=== PATIENT | male | born 1950 | race Caucasian/White ===

== ENCOUNTER 2020-07-24 06:05 | Day surgery (SDC) | payer BC, MEDICARE ==
[2020-07-21 13:05] LABS: Hematocrit 36.6 % (35.5-45.6); Hemoglobin 11.5 gm/dl (11.8-15.2); Mean Corpuscular HGB Conc 31 % (32-34); Mean Corpuscular Volume 65 fl (84-94); Platelet Count 254 K/mm3 (140-440); Red Blood Count 5.66 M/mm3 (3.65-5.03); Red Cell Distribution Width 16.2 % (13.2-15.2)
[2020-07-21 13:20] LABS: BUN/Creatinine Ratio 10; Blood Urea Nitrogen 9 mg/dL (9-20); Calcium 8.6 mg/dL (8.4-10.2); Hemolysis Index 0
[2020-07-24] MEDS ORDERED: ceFAZolin/STERILE WATER 2 GM/20 ML SYRINGE IV NR (07:00)
[2020-07-24] MEDS ORDERED: fentaNYL 100 MCG/2 ML INJ ONE (07:00)
[2020-07-24] MEDS ORDERED: propofoL 200 MG/20 ML VIAL IV ONE (07:01)
[2020-07-24] MEDS ORDERED: LACTATED RINGERS 1,000 ML ONE (07:15)
[2020-07-24] MEDS ORDERED: BUPIVACAINE/PF (0.5%) 5 MG/1 ML 30 ML VIAL INFILTRATI ONE ×2 (07:19→08:30)
[2020-07-24] MEDS ORDERED: HYDROmorphone 1 MG/1 ML INJ IV PRN ×2 (07:19)
[2020-07-24] MEDS ORDERED: LIDOCAINE (1%) 10 MG/1 ML VIAL 20 ML MDV ONE (07:19)
[2020-07-24] MEDS ORDERED: ONDANSETRON 4 MG/2 ML INJ IV PRN (07:19)
--- NOTE | 2020-07-24 07:24 | Anesthesia Day of Surgery ---
Anesthesia Day of Surgery - Day of Surgery Patient Examined: Yes Patient H&P Reviewed: Yes Patient is NPO: Yes
--- NOTE | 2020-07-24 07:25 | Anesthesia Consultation ---
Anesthesia Consult and Med Hx Date of service: 07/24/20 - Airway Anesthetic Teeth Evaluation: Bridges ROM Head & Neck: Adequate Mental/Hyoid Distance: Adequate Mallampati Class: Class II Intubation Access Assessment: Good - Pre-Operative Health Status ASA Pre-Surgery Classification: ASA2 Proposed Anesthetic Plan: General - Pulmonary Hx Smoking: No Hx Asthma: No Hx Respiratory Symptoms: No (+2FS) Hx Pneumonia: No Hx Sleep Apnea: No (HIGH RISK ON PRESCREEN-SNORES) - Cardiovascular System Hx Hypertension: No Hx Heart Attack/AMI: No Hx Pacemaker: No Hx Internal Defibrillator: No Hx Heart Murmur: No - Central Nervous System Hx Seizures: No Hx Back Pain: No Hx Psychiatric Problems: No - Endocrine Hx End Stage Renal Disease: No Hx Cirrhosis: No Hx Liver Disease: No - Hematic Hx Anemia: No - Other Systems Hx Alcohol Use: No Hx Substance Use: No Hx Cancer: No
[2020-07-24] MEDS ORDERED: LACTATED RINGERS 1,000 ML IV SCH (07:30)
[2020-07-24] MEDS ORDERED: KETOROLAC 30 MG/1 ML INJ ONE (07:34)
[2020-07-24] MEDS ORDERED: KETAMINE/STERILE WATER 50 MG/ML SYRINGE ONE (07:35)
[2020-07-24] MEDS ORDERED: ePHEDrine SULFATE 50 MG/1 ML INJ ONE (07:51)
[2020-07-24] MEDS ORDERED: HYDROmorphone 1 MG/1 ML INJ ONE (08:26)
[2020-07-24] MEDS ORDERED: WATER FOR IRRIG STERILE 1,500 ML BOTTLE IR ONE (08:30)
[2020-07-24] MEDS ORDERED: LIDOCAINE (1%) 10 MG/1 ML VIAL 20 ML MDV INFILTRATI ONE (08:30)
[2020-07-24] MEDS ORDERED: ROCURONIUM 50 MG/5 ML INJ IV ONE (09:52)
[2020-07-24] MEDS ORDERED: LIDOCAINE MPF (2%) 20 MG/1 ML VIAL 5 ML ONE (09:52)
[2020-07-24] MEDS ORDERED: PHENYLEPHRINE/NS 1,000 MCG/10 ML SYRINGE (OR USE) IV ONE (09:53)
[2020-07-24] MEDS ORDERED: dexAMETHasone 20 MG/5 ML VIAL ONE (09:53)
[2020-07-24] MEDS ORDERED: NEOSTIGMINE 10MG/10 ML INJ MDV ONE (09:54)
[2020-07-24] MEDS ORDERED: GLYCOPYRROLATE 0.4 MG/2 ML INJ ONE (09:54)
--- NOTE | 2020-07-24 09:55 | Short Stay Summary ---
Short Stay Documentation Date of service: 07/24/20 - History Principal diagnosis: left, possible right inguinal hernia H&P: obtained from office - Allergies and Medications Current Medications: Allergies No Known Allergies Allergy (Verified 07/21/20 15:48) Home Medications Medication Instructions Recorded Confirmed Last Taken Type Aspirin [Adult Aspirin] 81 mg PO DAILY 07/20/20 07/24/20 07/20/20 09:00 History Iron 1 tab PO 2XW 07/20/20 07/24/20 07/23/20 09:00 History Mobic 15 mg PO Q48HR 07/20/20 07/24/20 07/20/20 09:00 History Stool Softener 1 cap PO DAILY 07/20/20 07/24/20 07/23/20 09:00 History Active Medications Cefazolin Sodium (Cefazolin/Sterile Water 2 Gm/20 Ml Syringe) 2 gm IV PREOP NR Stop: 07/24/20 23:59 Hydromorphone HCl (Hydromorphone 1 Mg/1 Ml Inj) 0.25 mg IV Q10MIN PRN PRN Reason: Pain, Moderate (4-6) Stop: 07/24/20 23:00 Hydromorphone HCl (Hydromorphone 1 Mg/1 Ml Inj) 0.5 mg IV Q10MIN PRN PRN Reason: Pain , Severe (7-10) Stop: 07/24/20 23:00 Lactated Ringer's (Lactated Ringers) 1,000 mls @ 125 mls/hr IV DIRECT IAN Last Admin: 07/24/20 07:20 Dose: 125 mls/hr Documented by: Ondansetron HCl (Ondansetron 4 Mg/2 Ml Inj) 4 mg IV ONCE PRN PRN Reason: Nausea And Vomiting - Brief post op/procedure progress note Date of procedure: 07/24/20 Pre-op diagnosis: left possible right inguinal hernia Post-op diagnosis: other (bilateral inguinal hernia) Procedure: robotic assisted bilateral inguinal hernia repair with mesh, ilioinguinal nerve block Anesthesia: GETA, local Findings: Large direct LEFT inguinal hernia and Small direct RIGHT inguinal hernia - r epaired with Bard RIGHT and LEFT 3D max medium mesh respectively. Surgeon: MARY LOU SANTORO Estimated blood loss: minimal Pathology: none Condition: stable - Hospital course Hospital course: Pt observed - Disposition Condition at discharge: Good Disposition: DC-01 TO HOME OR SELFCARE Short Stay Discharge Plan Activity: other (no heavy lifting) Diet: regular Wound: open to air, per your surgeon's advice Additional Instructions: SEE PRINTED DISCHARGE INSTRUCTIONS. NO HEAVY LIFTING. WOUND:OPEN TO AIR. FOLLOW SURGEON INSTRUCTION. CALL FOR F/U APPT. Follow up with: TARIK ATKINSON MD [Primary Care Provider] - 7 Days MARY LOU SANTORO DO [Staff Physician] - 14 Days Forms: Outpatient Surgery DC Inst. Prescriptions: Gabapentin 300 mg PO BID 3 Days #6 cap oxyCODONE /ACETAMINOPHEN [Percocet 5/325] 1 tab PO Q6H #20 tab
[2020-07-24 12:30] VITALS: BP 130/75
--- NOTE | 2020-07-24 13:03 | Post Anesthesia Evaluation ---
- Post Anesthesia Evaluation Patient Participated: Yes Airway Patent: Yes Stable Respiratory Function: Yes Nausea/Vomiting: No Temp > 96.8F: Yes Pain Manageable: Yes Adequeate Hydration: Yes Anesthesia Complications: No Block Receding Appropriately: Not Applicable Patient on Ventilator: No
--- NOTE | 2020-07-24 17:13 | Operative Report ---
Operative Report Operative Report: Date of procedure: 07/24/20 Pre-op diagnosis: left possible right inguinal hernia Post-op diagnosis: other (bilateral inguinal hernia) Procedure: Robotic assisted bilateral inguinal hernia repair with mesh, ilioinguinal nerve block Anesthesia: GETA, local Findings: Large direct LEFT inguinal hernia and Small direct RIGHT inguinal hernia - repaired with Bard RIGHT and LEFT 3D max medium mesh respectively. Surgeon: MARY LOU SANTORO Estimated blood loss: minimal Pathology: none Condition: stable Hospital course: Pt observed doing discharged to home in stable condition when criteria met HPI and indication: Patient is a 70-year-old male who was referred to the surgery clinic for a bulge in the left groin. He was found to have a left inguinal hernia on physical exam. The hernia was symptomatic and often cause pain and pressure. It was recommended that the hernia be repaired. I discussed all risk, benefits, alternatives to repair with the patient and questions were answered. I explained that if the hernia was found on the right side at the same time, this would be fixed as well. The patient was agreeable. Consent obtained for robotic assisted left inguinal hernia repair with mesh, possible right, possible open. Procedure in detail: Patient was identified in the preoperative area, take back to operating room placed on operative table in supine position. After anesthesia was induced both arms were tucked and all bony prominences padded appropriately. A Toscano catheter was sterilely placed by the circulating nurse. The abdomen and b/l groins were then prepped and draped in usual sterile fashion and a timeout performed. Local anesthetic was infiltrated to skin at the intended incision sites. A supraumbilical incision was made through which a Veress needle was inserted. Veress needle positioning was confirmed using saline drop test and the abdomen insufflated to 15 mmHg. Once the abdomen was insufflated, the Veress needle was removed and a 5 mm Optiview trocar was placed as incision. The abdomen is inspected there was no underlying injury to any of the abdominal structures. Patient was placed in Trendelenburg and the pelvis examined. There was a left inguinal hernia and a small right inguinal hernia. At this point, an 8 mm right upper quadrant and left upper quadrant robotic trocars were then placed under direct visualization. The 5 mm supraumbilical trocar was removed and replaced with a 12 mm balloon trocar under direct visualization. A Ray-Dinesh was placed into the abdomen. The robot was then docked. A fenestrated bipolar was placed into arm #2 and a monopolar scissor in arm #1. The surgeon was then transferred to the console. First, I created a left sided preperitoneal flap. The peritoneum was scored approximately 5 to 6 cm from the hernia defect. The peritoneum was then incised from the midline to the ASIS. The preperitoneal flap was then developed in an avascular plane. I first defined the medial margin by dissecting to the pubic tubercle. The pubic tubercle was cleared of overlying fatty tissue using blunt dissection. I then created the lateral margin in a similar fashion. Great care was taken to avoid injury to any nerves. There was a direct inguinal hernia and the hernia sac along with a lipoma was gently reduced using blunt dissection and transecting cremasteric fibers with electrocautery. During the dissection, the cord structures were identified and protected. The cord structures and vas deferens were visualized throughout the entire dissection. Once the hernia sac was completely reduced, the peritoneal flap was checked for hemostasis. Any additional cremasteric fibers that were were tenting up the peritoneum were divided. Hemostasis was carefully ensured. I then created the flap on the right-hand side in a similar fashion to the left. The flaps were connected which resulted in one large flap. There was a smaller direct hernia on the side with a small amount of fat. The hernia sac and fat were carefully reduced. The remainder of the dissection was performed similar to the right side with cord structures visualized and protected throughout the entire dissection. Great care was taken to perform the dissection in an avas cular plane and avoid injury to surrounding structures. The left-sided hernia hernia was repaired using a LEFT medium 3D max mesh and the right-sided hernia was repaired using a RIGHT medium 3D max mesh. The mesh along with suture material was placed into the abdomen by the workforce development assistant. The mesh was positioned into the preperitoneal flap in the usual fashion bilaterally. The medial portion of each mesh was sutured to Jerome's ligament using an interrupted 2-0 Vicryl stitch. The lateral aspect of the mesh was sutured to the anterior lateral abdominal wall using a 2-0 Vicryl interrupted stitch. The mesh was seen to lay flat in the pocket with excellent coverage bilaterally. An 18 Malay Angiocath was placed through the right lower quadrant abdominal wall under direct visualization into the preperitoneal space. The peritoneum was then reapproximated using 3-0 running V-Loc stitch x2. A small tear in the right sided flap was approximated using a 2-0 Vicryl [id number] stitch. The entirety of the mesh was covered with peritoneum. The robot was then undocked and the surgeon scrubbed back in. The remainder of the case was performed laparoscopically. All sharp materials along with a Ray-Dinesh were removed from the abdomen under direct visualization. The 12 mm port was removed and the fascia closed using a interrupted 0 Vicryl stitch. The abdomen was then slowly desufflated and the mesh was seen to lay flat in the preperitoneal space. The remaining trocars were removed. The preperitoneal air was evacuated via the angiocatheter and the angiocatheter then removed. Skin incisions were once again infiltrated with local anesthetic. Bilateral ilioinguinal nerve block was also performed with 5 cc of local anesthetic on each side. The skin incisions were approximated with 4-0 Monocryl subcuticular stitches and skin glue. At the end of the case all sponge, instrument, sharp counts were correct x2. Patient was awoken from anesthesia and Toscano catheter removed. Both testicles were palpated in the scrotum in anatomic position. A scrotal support was applied. The patient was taken to PACU in stable condition.
== END 2020-07-24 12:15 | disposition home or self-care (01) ==
LOC: OR 06:05
PROVIDERS: ATTEND Surgery
DX: K40.20 Bilateral inguinal hernia, without obstruction or gangrene, not specified as recurrent (principal); M19.90 Unspecified osteoarthritis, unspecified site; Z20.828 Contact with and (suspected) exposure to other viral communicable diseases; Z79.899 Other long term (current) drug therapy; Z79.82 Long term (current) use of aspirin; Z98.890 Other specified postprocedural states
CPT/HCPCS: 36415; 49650; 80048; 85027; C1781; J0690; J1100; J1170; J1885; J2370; J2704; J2710; J3010; J3490; J7120; S2900; U0003

== ENCOUNTER 2021-07-06 13:42 | Outpatient (CLI) | payer BC ==
--- NOTE | 2021-07-07 09:58 | Electrocardiograph Report ---
[facility] Test Date: 2021-07-06 Test Time: 14:02:09 Pat Name: GHAZALA QUIROZ Department: Room: Gender: M [employer] Maker: YUNIEL : 1950 Requested By: TARIK ATKINSON Order Number: [id number] Reading MD: Tyrel Mark Measurements Intervals [place] Rate: 59 P: 83 MT: 142 QRS: 87 QRSD: 87 T: 78 QT: 409 QTc: 407 Interpretive Statements Sinus rhythm No previous ECG available for comparison Electronically Signed On 07-07-2021 9:57:41 EST by Tyrel Mark
== END 2021-07-06 13:43 | disposition home or self-care (01) ==
LOC: CARD 13:42
PROVIDERS: ATTEND Internal Medicine
DX: R07.9 Chest pain, unspecified (principal)
CPT/HCPCS: 93005; 93010